=== PATIENT | male | born 1980 | race Caucasian/White ===

== ENCOUNTER 2023-01-16 07:56 | Emergency (ER) | payer MEDICAID ==
[~2023-01-16] VITALS: Ht 177.8 cm; Wt 118.0 kg
[2023-01-16 09:01] VITALS: BP 131/86
--- NOTE | 2023-01-16 09:33 | NUR ---
pt going for CT
== END 2023-01-16 10:20 | disposition home or self-care (01) ==
LOC: ER 07:57
DX: M25.521 Pain in right elbow (principal)
CPT/HCPCS: 73080; 73090; 73200; 99284

== ENCOUNTER 2024-02-10 14:52 | Emergency (ER) | payer MEDICAID ==
[~2024-02-10] VITALS: Ht 177.8 cm; Wt 152.3 kg
[2024-02-10 15:06] VITALS: BP 170/83; TEMP 97.8
[2024-02-10 16:08] LABS: BASOPHILS # (AUTO) 0.1 X10'3 (0-0.2); BASOPHILS % (AUTO) 0.7 % (0-1); EOSINOPHILS # (AUTO) 0.3 X10'3 (0-0.9); EOSINOPHILS % (AUTO) 3.1 % (0-6); HEMATOCRIT 38.3 % (42.0-52.0); LYMPHOCYTES # (AUTO) 1.2 X10'3 (1.1-4.8); LYMPHOCYTES % (AUTO) 13.6 % (21-51); MEAN CORPUSCULAR HEMOGLOBIN 31.7 PG (27.0-31.0); MEAN CORPUSCULAR HGB CONC 33.9 g/dL (33.0-36.5); MEAN CORPUSCULAR VOLUME 93.5 FL (78-98); MEAN PLATELET VOLUME 7.9 FL (7.4-10.4); MONOCYTES # (AUTO) 0.7 X10'3 (0-0.9); MONOCYTES % (AUTO) 7.6 % (2-12); NEUTROPHILS # (AUTO) 6.8 X10'3 (1.8-7.7); PLATELET COUNT 204 X10'3 (140-440); RED BLOOD COUNT 4.09 X10'6 (4.70-6.10); RED CELL DISTRIBUTION WIDTH 13.3 % (11.5-14.5); WHITE BLOOD COUNT 9.1 X10'3 (4.5-11.0)
[2024-02-10 16:14] LABS: APTT 27 SECONDS (22-32); D-DIMER 0.67 MG/L FEU (0-0.50); PROTHROMBIN TIME 10.4 SECONDS (9.0-12.0)
[2024-02-10 18:09] LABS: BILIRUBIN,URINE NEGATIVE (Neg); CLARITY,URINE CLEAR (Clear); COLOR,URINE YELLOW (Yellow); GLUCOSE, URINE NEGATIVE (Neg); KETONES,URINE NEGATIVE (Neg); LEUKOCYTE ESTERASE ,URINE NEGATIVE (Neg); NITRITES, URINE NEGATIVE (Neg); OCCULT BLOOD,URINE TRACE-INTACT (Neg); PH,URINE 6.5 (4.8-8.0); PROTEIN,URINE NEGATIVE (Neg); UROBILINOGEN,URINE 0.2 E.U/dL (0.2-1.0)
[2024-02-10 18:11] LABS: UA COLLECTION TYPE CLN CATCH MIDSTREAM
[2024-02-10 18:16] LABS: BACTERIA,URINE NONE SEEN /HPF (Neg); MUCUS STRANDS NONE SEEN /LPF (Neg); RBC,URINE NONE SEEN /HPF (0-2); SQUAMOUS EPITHELIAL CELL,UR NONE SEEN /LPF (FEW); WBC,URINE NONE SEEN /HPF (0-4)
[2024-02-10] MEDS ORDERED: LISI1TAB49 PO (18:33)
[2024-02-10 18:40] VITALS: PULSE 72; RESP 16; O2SAT 98
[2024-02-10 18:42] LABS: ALBUMIN 3.5 G/DL (3.4-5.0); ANION GAP 6 (8-16); BLOOD UREA NITROGEN 14 MG/DL (7-18); BUN/CREATININE RATIO 15.6 (10.0-20.0); CALCIUM 8.6 MG/DL (8.5-10.1); CHLORIDE 102 MMOL/L (99-107); GLUCOSE 96 MG/DL (70-104); POTASSIUM 3.9 MMOL/L (3.5-5.1); PRO BRAIN NATRIURETIC PEPTIDE 275 PG/ML (0-125); SODIUM 138 MMOL/L (135-145); TOTAL CARBON DIOXIDE 29.7 MMOL/L (24-32); eCRCL 107 ML/MIN; eGFR > 90 ML/MIN
== END 2024-02-10 19:17 | disposition home or self-care (01) ==
LOC: ER 14:53
DX: R60.0 Localized edema (principal); R53.83 Other fatigue; I10 Essential (primary) hypertension
CPT/HCPCS: 36415; 80048; 81001; 83735; 83880; 84484; 85025; 85379; 85610; 85730; 93005; 93306; 93970; 99284; J7030

== ENCOUNTER 2025-05-22 10:13 | Inpatient (IN) | payer MEDICAID ==
[~2025-05-22] VITALS: Ht 177.8 cm; Wt 136.4 kg
[~2025-05-22 10:13] MED LIST: LISI1TAB49 PO
[2025-05-22] MEDS: furosemide 10 MG/1 ML 10ml inj IV ONE (10:20)
--- NOTE | 2025-05-22 10:24 | Physician Documentation ---
History of Present Illness ~ Chief Complaint: Extremity Swelling Stated Complaint: EDEMA Time Seen by MD: 10:28 Primary Medical Doctor: none HPI 44-year-old male presents to the ED with a complaint of acute onset lower extremity swelling. 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 Reports increased shortness of breath. elena LYNN Day of Onset: May 22, 2025 Medication Reconciliation Allergies: Coded Allergies: No Known Allergies (Unverified , 05/22/25) Scheduled Lisinopril/Hydrochlorothiazide (Lisinopril-Hctz 10-12.5 mg Tab), 1 TAB PO DAILY Review of Systems All Other Systems at this time: Reviewed and Negative ROS As stated above in the HPI, otherwise all systems are reviewed and negative. Physical Exam Physical Exam General: Alert, mod distress. Neck: Full range of motion. Respiratory: Lungs clear,respiratory distress Chest: No accessory muscle use. Cardiovascular: tachycardia and rhythm, no murmurs. extremities : Bilateral lower extremity edema 3+ with erythema circumferential, Neurologic: Oriented x4. Psychiatric: Normal mood and affect. Skin: Normal color, warm and dry. No edema, no ecchymosis. Progress Results/Orders Results/Orders Orders - NELL BOLIVAR PACK CHANGER Chest,Single View (05/22/25 10:18) Monitor (05/22/25 10:18) Saline Lock (05/22/25 10:18) Oxygen (05/22/25 10:18) Hs Troponin I W Calculations (05/22/25 12:18) Hs Troponin I W Calculations (05/22/25 13:18) Culture Blood (05/22/25 11:35) Urinalysis, Cult If Indicated (05/22/25 11:35) Saline Lock (05/22/25 11:35) Page Hospitalist (05/22/25 ) Completed Orders - NELL BOLIVAR PACK CHANGER Chest,Single View (05/22/25 10:18) Cbc/Diff (05/22/25 10:18) BMP (05/22/25 10:18) PBNP (05/22/25 10:18) Electrocardiogram (05/22/25 10:18) Hs Troponin I W Calculations (05/22/25 10:18) Furosemide Inj (Lasix Inj) (05/22/25 10:20) Procalcitonin (05/22/25 11:35) Lacticsepsis (05/22/25 11:35) Lactic,2hr (05/22/25 13:41) Piperacillin/Tazo 4.5gm/100ml (Zosyn 4.5 (05/22/25 20:00) Vancomycin*Pharmacy To Dose* (Vancomycin (05/22/25 14:05) Normal Saline 1000ml (0.9% Sodium Chlori (05/22/25 14:05) Vancomycin/Ns 1 Gm Add-[place] (Vancomyc (05/22/25 14:25) Morphine 2mg/Ml Inj. (Morphine Inj.) (05/22/25 15:05) Ondansetron Inj. (Zofran 4mg/2ml Vial) (05/22/25 15:05) Medications Received in ER Medications (Trade) Dose Ordered Sig/Ronaldo Route PRN Reason Start Time Stop Time Status Last Admin Dose Admin (Lasix inj) 40 mg ONCE ONCE IV 05/22/25 10:20 05/22/25 10:21 DC 05/22/25 10:20 40 MG (Vancomycin Pharmacy To Dose) 1 unit ONCE ONCE IV 05/22/25 14:05 05/22/25 14:07 DC 05/22/25 14:05 1 UNIT (0.9% sodium chloride (NS) 1000ml IV soln) 2,000 ml ONCE ONCE IVB 05/22/25 14:05 05/22/25 14:07 DC 05/22/25 14:05 2,000 ML Vancomycin HCl 250 ml @ 166 mls/hr ONCE ONCE IV 05/22/25 14:25 05/22/25 15:55 DC 05/22/25 15:24 166 MLS/HR (morphine inj.) 2 mg ONCE ONCE IV 05/22/25 15:05 05/22/25 15:06 DC 05/22/25 15:24 2 MG (Zofran 4mg/2ml vial) 4 mg ONCE ONCE IV 05/22/25 15:05 05/22/25 15:06 DC 05/22/25 15:24 4 MG Vital Signs 05/22/25 10:19 Temp 97.6 Pulse 65 Resp 20 B/P (MAP) 182/104 Pulse Ox 89 Laboratory Tests Test 05/22/25 10:29 05/22/25 12:11 05/22/25 14:04 White Blood Count 21.6 H Red Blood Count 4.92 Hemoglobin 14.8 Hematocrit 44.0 Mean Corpuscular Volume 89.4 Mean Corpuscular Hemoglobin 30.0 Mean Corpuscular Hemoglobin Concent 33.6 Red Cell Distribution Width 13.4 Platelet Count 231 Mean Platelet Volume 8.0 Neutrophils (%) (Auto) 97.0 H Lymphocytes (%) (Auto) 1.6 L Monocytes (%) (Auto) 1.1 L Eosinophils (%) (Auto) 0 Basophils (%) (Auto) 0.3 Neutrophils # (Auto) 20.9 H Lymphocytes # (Auto) 0.3 L Monocytes # (Auto) 0.2 Eosinophils # (Auto) 0.0 Basophils # (Auto) 0.1 CBC Comment Sodium Level 132 L Potassium Level 3.6 Chloride Level 95 L Carbon Dioxide Level 26.4 Anion Gap 11 Blood Urea Nitrogen 8 Creatinine 1.20 H Estimated GFR/1.73 m2 65 BUN/Creatinine Ratio 6.7 L Glucose Level 144 H Calcium Level 8.6 Troponin I High Sensitivity 8 Pro-B-Type Natriuretic Peptide 768 H Albumin 3.3 L Chemistry Comments Lactic Acid Level 3.1 H 1.4 Procalcitonin 4.80 H Microbiology Date/Time Source Procedure Growth Status 05/22/25 12:11 Blood Hand Right Blood Culture - Preliminary NEGATIVE (LESS THAN 24 HOURS) Resulted Medical Decision Making Findings This 44-year-old male presented with severe lower extremity edema and cellulitis. He also had the clinical indications for sepsis based on an elevated lactate and a white blood cell count over 20. Started him on fluid boluses and IV antibiotics and requested hospital admission. Resident took over care of the patient Differential Dx:Considerations: Include: anxiety, asthma, bronchitis, cardiogenic shock, CHF, COPD, dysrhythmia, hypertension, accelerated, hypertension, essential, hypertension, malignant, hyperventilation, h yponatremia, myocardial infarction, panic attack, pneumonia, pneumonitis, pneumothorax, PSVT, pulmonary embolism, respiratory distress, respiratory failure, sinusitis, upper resp. infection, other Departure Disposition: 09 ADMITTED INPATIENT Impression: Primary Impression: Peripheral edema Additional Impression: Cellulitis Condition: Stable Referrals: NO PRIMARY CARE PROVIDER (PCP) Signature Scribe Signature: r Attestation: Scribed for Nell Bolivar Television Anchor by Nell Buitrago NP . 05/22/25 17:36 NELL BOLIVAR NP May 22, 2025 10:24 DIVYA BEDOLLA MD May 22, 2025 17:34
--- NOTE | 2025-05-22 10:30 | ELECTROCARDIOGRAPH REPORT ---
[facility] Test Date: 2025-05-22 Test Time: 10:27:57 Pat Name: ANTOINETTE MCGOWAN Department: [facility] Patient ID: [id number] Room: Gender: M Buffing Machine Operator: : [id number] Requested By: NELL LOFTON Order Number: [id number] Reading MD: Measurements Intervals [place] Rate: 119 P: -1 MA: 148 QRS: 96 QRSD: 151 T: 2 QT: 349 QTc: 492 Interpretive Statements Sinus tachycardia RBBB and LPFB Please click the below link to view image of tracing.
--- NOTE | 2025-05-22 10:58 | RADIOLOGY REPORT ---
DI CHEST,SINGLE VIEW, HISTORY: CP COMPARISON: DI CHEST,SINGLE VIEW on DOS: 02/08/24 DI CHEST,SINGLE VIEW on DOS: 02/08/24 TECHNICAL DATA: 1 view of the chest was obtained. FINDINGS: Lines and tubes: None Cardiomediastinal silhouette: normal Pulmonary vasculature: normal Lung expansion: normal Lung airspace: normal Lung interstitium: normal Pleura: normal Pneumothorax: no Bones: Unremarkable Other: no IMPRESSION: No acute intrathoracic abnormality.
[2025-05-22 11:02] LABS: MEAN PLATELET VOLUME 8.0 FL (7.4-10.4); RED CELL DISTRIBUTION WIDTH 13.4 % (11.5-14.5)
[2025-05-22 11:20] LABS: CREATININE 1.20 MG/DL (0.60-1.10); PRO BRAIN NATRIURETIC PEPTIDE 768 PG/ML (0-125); TOTAL CARBON DIOXIDE 26.4 MMOL/L (24-32); eCRCL 79 ML/MIN; eGFR 65 ML/MIN
[2025-05-22] MEDS: normal saline 1000ML IV soln IVB ONE (14:05)
[2025-05-22] MEDS ORDERED: piperacillin/tazo 4.5gm/100ml 100 ML IV ONE (14:50)
[2025-05-22] MEDS: vancomycin/NS 1 GM ADD-VANTAGE 250 ML X 1 DOSE IV ONE (15:24)
[2025-05-22] MEDS: ondansetron/PF 4mg/2ml inj IV ONE (15:24)
[2025-05-22] MEDS ORDERED: HYDROmorphone/PF 0.2 MG/ML SYRINGE IV PRN (15:30)
[2025-05-22] MEDS ORDERED: mag hydrox/Alum hydrox/simeth 30ml oral suspension PO PRN (15:30)
[2025-05-22] MEDS ORDERED: magnesium Cl slow-release 64mg tablet PO PRN (15:30)
[2025-05-22] MEDS ORDERED: magnesium sulf-water 4G/100mL 100 ML IV PRN (15:30)
[2025-05-22] MEDS ORDERED: ondansetron/PF 4mg/2ml inj IV PRN (15:30)
[2025-05-22] MEDS ORDERED: magnesium hydroxide 30ml (MOM) UD suspension PO PRN (15:30)
[2025-05-22] MEDS ORDERED: potassium Cl 40MEQ/1/2NS 520ml 520 ML IV PRN (15:30)
[2025-05-22] MEDS ORDERED: magnesium sulf-water 2g/50mL 50 ML IV PRN (15:30)
[2025-05-22] MEDS: normal saline 1000ml 1,000 ML IV SCH (15:41)
[2025-05-22] MEDS ORDERED: piperacillin/tazo 3.375gm/50ml 50 ML IV SCH (16:00)
[2025-05-22] MEDS: piperacillin/tazo 4.5gm/100ml 100 ML IV ONE (16:05)
[2025-05-22 17:06] LABS: APTT 31 SECONDS (22-32); INR 1.4 INR
[2025-05-22 17:09] LABS: CREATININE 1.29 MG/DL (0.60-1.10); PHOSPHORUS 3.2 MG/DL (2.3-4.5); TOTAL CARBON DIOXIDE 29.4 MMOL/L (24-32); eCRCL 74 ML/MIN; eGFR 60 ML/MIN
--- NOTE | 2025-05-22 19:38 | HISTORY AND PHYSICAL-Residence ---
History & Physical Providers to Resident Creating Document: DAYAN MIN RES ~ History of Present Illness Primary Medical Doctor: none Reason for Admit\Complaint: Lower extremity pain-mainly right History of Present Illness The 44-year-old male who lives with his roommates presented to the ER with a chief concern of worsening pain and erythema in his bilateral lower extremities- mainly in the right. States that he has been having chronic bilateral lower extremity edema for many months to years but the pain and erythema started two days back and he woke up with pain last night. Denies taking any medications at home. Denies any chest pain, nausea and vomiting, constipation or diarrhea. Appears drowsy. States that he has been smoking 1-2 cigarettes per day for the last 20 years. He occasionally drinks alcohol once or twice a year. Mentioned that he drinks methamphetamine in the last one was about two years back. Denies any IV drug abuse. He uses CPAP at night for obstructive sleep apnea. Allergies: Coded Allergies: No Known Allergies (Unverified , 05/22/25) Home Medications Home Medications Active Lisinopril-Hctz 10-12.5 mg Tab (Lisinopril/Hydrochlorothiazide) 10 Mg-12.5 Mg Tablet 1 Tab PO DAILY 30 Days Past Medical History Past Medical History BPH, obstructive sleep apnea Past Surgical History Surgical History Comment Denies any surgical history Past Social History Social History Comment States that he has been smoking 1-2 cigarettes per day for the last 20 years. He occasionally drinks alcohol once or twice a year. Mentioned that he drinks methamphetamine in the last one was about two years back. ROS ROS Constitutional: No fever, chills, dizziness, weakness, weight gain or loss Eyes: No pain, erythema, discharge, blurring of vision ENT: No sore throat, epistaxis, tinnitus Cardiovascular: No chest pain, chest pressure, chest discomfort, palpitations, syncope, lower extremity edema, paroxysmal nocturnal dyspnea Respiratory: No shortness of breath, cough, hemoptysis Gastrointestinal: Normal appetite. No nausea, vomiting, diarrhea, constipation, hematemesis, abdominal pain, bloating, melena or fresh blood Genitourinary: No frequency, urgency, nocturia, hematuria or dysuria Musculoskeletal: Bilateral lower extremity pain. Mainly in the right Integumentary: Erythema of right lower extremity talpy-efg-fsla till the ankle. No bruising, abrasions Neurologic: No headache, neck pain, numbness or tingling of the extremities, weakness Psychiatric: No delusions, depression, loss of interest in normal activity or change in sleep pattern, hallucinations, suicidal ideations Endocrine: No fatigue, weakness, polydipsia, polyuria, change in appetite, heat or cold intolerance, sweating, dry skin Hematological: No bleeding, petechiae, bruising Allergies: No asthma or urticaria Exam Vitals: Vital Signs Date Time Temp Pulse Resp B/P (MAP) Pulse Ox O2 Delivery O2 Flow Rate FiO2 05/22/25 18:02 114 14 128/62 (84) 95 05/22/25 15:30 2.0 05/22/25 15:30 Nasal Cannula* 28 05/22/25 10:19 97.6 General: Appears drowsy. Oriented to time, self, place and person. Morbidly obese HEENT: Normocephalic and atraumatic. Pupils equal round reactive to light and accommodation. Extraocular movements intact. Oral and nasal mucosa moist Neck: Trachea is in midline. No masses or JVD Chest: Bilateral normal breath sounds. No crackles, rhonchi or wheezes Cardiovascular: Elevated rate. Sinus rhythm. No rubs or murmurs Abdomen: Soft, nontender nondistended. Bowel sounds present Extremities: Bilateral lower extremity pedal edema-appears chronic. Erythema, warmth and tenderness in the right lower extremity ldkiz-nzd-slin till ankle. No open wounds or discharge. No cyanosis or clubbing. Bilateral 2+ pedal pulse Central Nervous System: No gross sensory or motor deficits. CN II to XII grossly intact Skin: Warm and dry with findings as mentioned above Diagnostic Data Last Recorded Lab Results: 05/22/25 1029 05/22/25 1642 Diagnostic Data: Laboratory Tests Test 05/22/25 16:42 Prothrombin Time 13.5 SECONDS (9.0-12.0) H INR International Normalized Ratio 1.4 INR Activated Partial Thromboplast Time 31 SECONDS (22-32) D-Dimer 1.37 MG/L FEU (0-0.50) H D-Dimer Comment Coagulation Comments Advance Care Planning Advanced Care plannin - 30 Minutes Additional Plan Sepsis secondary to right lower extremity cellulitis Elevated WBC, tachycardic Received 2 L normal saline boluses in the ER. Avoided further fluid boluses due to suspicion fluid overload as he already has significant bilateral lower extremity edema. Also received Lasix 40 mg IV once in the ER Received Zosyn 4.5 g IV and one dose of vancomycin in the ER Started Zosyn 3.375 g IV q.8h and vancomycin pharmacy to dose Preliminary blood cultures negative UA and urine tox ordered Bilateral lower extremity CT ordered to rule out necrotizing fasciitis Bilateral venous ultrasound ordered to look for any DVT Elevated lactic acid-3.1. Trended down to normal Procalcitonin elevated-4.8. Trend procalcitonin Sinus tachycardia EKG showed sinus rhythm, wide QRS with M pattern in precordial leads, T-wave inversions in lead III, V1, prolonged QTC-492 Elevated D-dimer 1.37 Ordered chest CTA Mild hyponatremia and hypochloremia Possible RHINA on CKD Received 2 L normal saline boluses in the ER Started normal saline at 100 cc/hour Urine lytes ordered Obstructive sleep apnea Continue CPAP at night BPH Mentions that he does not use any medications at home DVT prophylaxis: Lovenox 40 mg subcutaneous daily Dayan Min MD Internal Medicine Resident, PGY 3 Date of Service: May 22, 2025 Billing Provider: LEXA QUINTANILLA MD, MANOJNA RES May 22, 2025 19:38
[2025-05-22] MEDS: K and/or MAG REPLACEMENT MC SCH (20:00)
[2025-05-22] MEDS ORDERED: piperacillin/tazo 4.5gm/100ml 100 ML IV SCH (20:00)
--- NOTE | 2025-05-22 20:41 | RADIOLOGY REPORT ---
COMPUTERIZED TOMOGRAPHIC ANGIOGRAPHY OF THE CHEST WITH INTRAVENOUS CONTRAST REASON FOR EXAM: rule out PE. Worsening pain and erythema in bilateral lower extremities, right-grea zwj-srvn-leye. Chronic bilateral lower extremity edema for many months. COMPARISON: None TECHNIQUE: The exam was performed on a multidetector spiral scanner. Spiral images were acquired fro m the thoracic inlet through the adrenal glands, during the bolus intravenous administration of cont rast. Multiplanar maximum intensity projection (MIP) images were provided. Radiation optimization: Al l CT scans at this facility use at least one of these dose optimization techniques: Automated exposur e control mA and/or kV adjustment per patient size (includes targeted exams where dose is matched to clinical indication) or iterative reconstruction. RADIATION DOSE: CTDI: 25 mGy DLP: 985 mGy-cm FINDINGS: There is minimal dependent atelectasis in both lungs. There is no bronchiectasis or honeyc ombing. There is no pleural effusion. There is no pneumothorax. The heart is not enlarged. There is no pericardial effusion. There is no thoracic aortic aneurysm or dissection. Due to contrast bolus ti iftikhar in the systemic arteries and lack of contrast in the pulmonary arteries, the study is nondiagnos tic for pulmonary embolism. There is no pathologic lymphadenopathy by size criteria. No acute osseous abnormality is identified. IMPRESSION: Due to contrast bolus timing in the systemic arteries and the lack of contrast in the pulmonary arter ial tree, the study is nondiagnostic for pulmonary embolism. If there is high clinical concern for pu lmonary embolism, consider repeating the study after IV hydration. There is no thoracic aortic aneurysm or dissection.
--- NOTE | 2025-05-22 20:51 | RADIOLOGY REPORT ---
COMPUTERIZED TOMOGRAPHY OF BILATERAL LOWER EXTREMITIES WITHOUT CONTRAST REASON FOR EXAM: rule out necrotizing fascitis. Worsening pain and erythema in bilateral lower extrem ities, cfqxv-veqduid-oyhg-left. Bilateral lower extremity edema for many months with worsening pain a nd erythema starting 2 days ago. COMPARISON: None TECHNIQUE: The exam was performed on a multidetector scanner. Thin slices were acquired through abner ateral lower extremities from the distal femoral metaphysis through the toes. Sagittal and coronal r eformations were performed on a separate workstation. Radiation optimization: All CT scans at this facility use at least one of these dose optimization huey hniques: Automated exposure control mA and/or kV adjustment per patient size (includes targeted exams where dose is matched to clinical indication) or iterative reconstruction. RADIATION DOSE: CTDI: 9 mGy DLP: 646 mGy-cm FINDINGS: There is moderate diffuse subcutaneous edema in the left lower extremity [id number]-[id number]. There is severe diffuse subcutaneous edema in the right lower extremity yleel-sbo-adxu. No subcutane ous gas is identified. No soft tissue ulceration is identified. There is no significant knee effusion . There is an intramedullary emeli within the right tibia. There is plate and screw fixation of the dis omer right fibula. No acute osseous abnormality is identified within the limitations of motion artifac t. There is moderate motion artifacts mostly affecting the left foot. IMPRESSION: Moderate left and severe right diffuse subcutaneous edema in lower extremities nmubp-wib-zyyu. No jeter bcutaneous gas to suggest necrotizing fasciitis although it can not be ruled out.
[2025-05-22] MEDS: piperacillin/tazo 3.375gm/50ml 50 ML IV SCH (21:27)
[2025-05-22] MEDS: enoxaparin 40mg/0.4ml syringe SQ SCH (21:32)
[2025-05-22 21:36] VITALS: PULSE 105; RESP 29; O2SAT 94
--- NOTE | 2025-05-22 21:54 | VASCULAR REPORT ---
VASC VL VENOUS HISTORY: Swelling COMPARISON: CT CT LOWER EXTREMITY on DOS: 05/22/25 TECHNIQUE: Duplex Doppler evaluation of the deep venous systems of both lower extremities from the co mmon femoral veins to the popliteal veins including color Doppler and spectral/pulsed waveform analys is was performed. FINDINGS: RIGHT SIDE The common femoral vein demonstrates appropriate compressibility and waveform variability. There is compressibility/patency of the great saphenous vein at the proximal thigh. The femoral vein demonstrates appropriate compressibility and waveform variability. The deep femoral vein demonstrates appropriate compressibility and waveform variability. The popliteal vein demonstrates appropriate compressibility and waveform variability. There is normal compressibility at the tibioperoneal trunk. LEFT SIDE The common femoral vein demonstrates appropriate compressibility and waveform variability. There is compressibility/patency of the great saphenous vein at the proximal thigh. The femoral vein demonstrates appropriate compressibility and waveform variability. The deep femoral vein demonstrates appropriate compressibility and waveform variability. The popliteal vein demonstrates appropriate compressibility and waveform variability. There is normal compressibility at the tibioperoneal trunk. Enlarged lymph nodes in the right groin measuring 3.3 and 2.9 cm in the transverse plane. IMPRESSION: No right or left femoropopliteal venous thrombosis. If clinical concern/symptoms persist or worsen, short-interval follow-up study is suggested.
[2025-05-22 22:59] VITALS: BP 117/80; PULSE 100; RESP 22; TEMP 100.9; O2SAT 99
[2025-05-22 23:00] VITALS: RESP 418
[2025-05-22 23:04] VITALS: PULSE 100; RESP 29; O2SAT 97
[2025-05-23] VITALS (10 sets, daily range): BP systolic 113–154; BP diastolic 78–96; PULSE 94–111; RESP 14–26; TEMP 97.7–103; O2SAT 96–100
[2025-05-23] MEDS: vancomycin/NS 1 GM ADD-VANTAGE 250 ML IV SCH (00:29)
[2025-05-23] MEDS: piperacillin/tazo 3.375gm/50ml 50 ML IV ONE (04:32)
[2025-05-23 04:53] LABS: MEAN PLATELET VOLUME 7.7 FL (7.4-10.4); RED CELL DISTRIBUTION WIDTH 13.5 % (11.5-14.5)
[2025-05-23 04:55] LABS: LEUKOCYTE ESTERASE ,URINE NEGATIVE (Neg); NITRITES, URINE NEGATIVE (Neg); OCCULT BLOOD,URINE TRACE-INTACT (Neg)
[2025-05-23 05:03] LABS: UA COLLECTION TYPE NON-SPECIFIED
[2025-05-23 05:04] LABS: MUCUS STRANDS FEW /LPF (Neg); SQUAMOUS EPITHELIAL CELL,UR FEW /LPF (FEW)
[2025-05-23 05:05] LABS: HYALINE CASTS 0-3 /LPF (NEGATIVE)
[2025-05-23 05:10] LABS: URINE AMPHETAMINE SCREEN POSITIVE (Neg); URINE BARBITUATE SCREEN NEGATIVE (Neg); URINE BENZODIAZEPINES SCREEN NEGATIVE (Neg); URINE CANNABINOID SCREEN POSITIVE (Neg); URINE COCAINE SCREEN NEGATIVE (Neg); URINE METHADONE SCREEN NEGATIVE (Neg); URINE OPIATE SCREEN POSITIVE (Neg); URINE PHENCYCLIDINE SCREEN NEGATIVE (Neg)
[2025-05-23 05:10] LABS: CREATININE 1.40 MG/DL (0.60-1.10); TOTAL CARBON DIOXIDE 26.8 MMOL/L (24-32)
[2025-05-23 05:11] LABS: CHOL/HDL RATIO 3.8 (0.00-4.99); LDL CHOLESTEROL 65 MG/DL (50-100); PHOSPHORUS 2.8 MG/DL (2.3-4.5); eCRCL 68 ML/MIN; eGFR 55 ML/MIN
[2025-05-23 05:15] LABS: UA EOSINOPHILS NO EOS /HPF
[2025-05-23 05:23] LABS: APTT 31 SECONDS (22-32); INR 1.2 INR
[2025-05-23 05:41] LABS: OSMOLALITY UA 641.0 MOSM/K (50-1400)
[2025-05-23 05:50] LABS: CREATININE,URINE RANDOM 223.0 MG/DL
[2025-05-23] MEDS: potassium Cl 20 mEq SR tablet PO PRN (07:32)
[2025-05-23] MEDS: normal saline 500ml IV soln 500 ML IV ONE ×2 (10:45→12:33)
--- NOTE | 2025-05-23 11:08 | RADIOLOGY REPORT ---
CTA Chest with intravenous contrast INDICATION: Tachycardia, tachypnea, high D-dimer COMPARISON: CT CTA CHEST PE W/ IV CONTRAST on DOS: 05/22/25 TECHNIQUE: Multidetector spiral CTA of the chest was performed of the chest with 100 cc of omnipaque 350 intravenous contrast. PULMONARY ANGIOGRAPHY PROTOCOL was utilized using a bolus-tracking technique centered on the main pulmonary artery. Coronal and sagittal multiplanar and MIP reformats were performed. Radiation Dose : 1. Chest: CTDI volume is 24.9 mGy. Dose-length product is 876.8 mGy*cm The dose indicators for CT are the volume Computed Tomography (CT) Dose Index (CTDIvol) and the Dose Length Product (DLP), and are measured in units of mGy and mGy-cm, respectively. These indicators are not patient dose, but values generated from the CT scanner acquisition factors. The report includes radiation exposure data for exposures received during this examination. FINDINGS: Pulmonary artery: There suboptimal enhancement of the pulmonary arteries. There is no filling defects in the main pulmonary arteries. Lobar, segmental and subsegmental branches are not evaluated. Lower neck: Unremarkable thyroid. Lungs: There is bilateral lower lobe atelectasis. Central airways: Patent. Pleura: No pneumothorax. No pleural effusions. Heart/Vascular Structures: The heart is normal in size. No pericardial effusion. Thoracic aorta is normal in caliber. No aneurysm or dissection. Lymph Nodes: No mediastinal or hilar lymphadenopathy. Esophagus:Grossly unremarkable. Musculoskeletal: Unremarkable. Body wall: Cystic mass in the right chest wall measures 6.7 cm. Bilateral gynecomastia noted. Upper abdomen: Unremarkable. IMPRESSION: 1. Suboptimal enhancement of the pulmonary arteries. No pulmonary embolus in the main pulmonary arteries. Lobar, segmental and subsegmental branches are not evaluated due to poor enhancement. If clinically warranted, nuclear medicine V/Q scan may be obtained. 2. Bilateral lower lobe atelectasis. 3. Bilateral gynecomastia. 4. Cystic mass in the right chest wall measures 6.7 cm.
[2025-05-23] MEDS: HYDROcodone/acetaminophen 10/325mg tab PO PRN (12:37)
[2025-05-23] MEDS: VANCOMYCIN LEVEL IV ONE (15:10)
--- NOTE | 2025-05-23 15:45 | PROGRESS NOTE- Residence ---
Progress Note - Resident Providers to CC Resident Creating Document: DAYAN MIN RES ~ Antibiotic Timeout Antibiotic Ordered?: Yes Subjective Patient seen and examined today. Resting in the bed and complaints of pain in the right leg. Telemetry showed sinus rhythm with max heart rate in low 100s. Objective Vital Signs Date Time Temp Pulse Resp B/P (MAP) Pulse Ox O2 Delivery O2 Flow Rate FiO2 05/23/25 13:37 14 05/23/25 10:00 98.1 98 137/78 (97) 100 Room Air 05/23/25 08:00 2.0 28 Result Diagram: 05/23/2543505/23/25435 General examination: Appears drowsy. Oriented to time, self, place and person. Morbidly obese HEENT: Normocephalic and atraumatic. Pupils equal round reactive to light and accommodation. Extraocular movements intact. Oral and nasal mucosa moist Neck: Trachea is in midline. No masses or JVD Chest: Bilateral normal breath sounds. No crackles, rhonchi or wheezes Cardiovascular: Regular rate and rhythm. No rubs or murmurs Abdomen: Soft, nontender nondistended. Bowel sounds present Extremities: Bilateral lower extremity pedal edema-appears chronic. Erythema, warmth and tenderness in the right lower extremity [id number] till ankle. No open wounds or discharge. No cyanosis or clubbing. Bilateral 2+ pedal pulse. Erythema improving Central Nervous System: No gross sensory or motor deficits. CN II to XII grossly intact Skin: Warm and dry with findings as mentioned above Coagulation Studies Laboratory Tests Test 05/22/25 16:42 05/23/25 04:36 D-Dimer 1.37 MG/L FEU (0-0.50) H D-Dimer Comment Prothrombin Time 11.9 SECONDS (9.0-12.0) INR International Normalized Ratio 1.2 INR Activated Partial Thromboplast Time 31 SECONDS (22-32) Coagulation Comments Assessment Assessment The 44 year old male with a history of methamphetamine and tobacco abuse presented to the ER with a concern of worsening bilateral LE pain pain and erythema. Admitted for sepsis secondary to Bilateral LE cellulitis - worse in the right. Plan Plan Sepsis secondary to bilateral lower extremity cellulitis - worse in the right wbc and procalcitonin trending down Continue zosyn 3.375 g IV q.8h and vancomycin pharmacy to dose Moderate left and severe right diffuse subcutaneous edema in lower extremities [id number]. No subcutaneous gas to suggest necrotizing fasciitis although it can not be ruled out. LE erythema improving Preliminary blood cultures negative Bilateral venous usg showed No right or left femoropopliteal venous thrombosis. Given 1L normal saline bolus as he got two doses of contrasts continue NS @ 100cc/hr Bilateral LE CT: Moderate left and severe right diffuse subcutaneous edema in lower extremities [id number]. No subcutaneous gas to suggest necrotizing fasciitis although it can not be ruled out. Sinus tachycardia - improving with IV fluid hydration EKG at the time of admission showed sinus rhythm, wide QRS with M pattern in precordial leads, T-wave inversions in lead III, V1, prolonged QTC-492 Elevated D-dimer 1.37 Chest CTA showed: due to contrast bolus timing in the systemic arteries and the lack of contrast in the pulmonary arterial tree, the study is nondiagnostic for pulmonary embolism. If there is high clinical concern for pulmonary embolism, consider repeating the study after IV hydration. Repeat chest CTA ordered at night. It showed: -Suboptimal enhancement of the pulmonary arteries. No pulmonary embolus in the main pulmonary arteries. Lobar, segmental and subsegmental branches are not evaluated due to poor enhancement. If clinically warranted, nuclear medicine V/Q scan may be obtained. -Bilateral lower lobe atelectasis. -Bilateral gynecomastia. -Cystic mass in the right chest wall measures 6.7 cm. -There is no thoracic aortic aneurysm or dissection. Due to his active smoking. tachycardia, elevated D dimer - VQ scan ordered Echocardiogram ordered Methamphetamine abuse Tobacco abuse Urine tox showed postivie amphetamines and cannabinoids marine services technician and substance use navigator consult requested Mild hyponatremia and hypochloremia Possible RHINA on CKD Continue normal saline at 100 cc/hour FeNa<1%, elevated osmolality - Likely Pre renal - vasootor nephropathy though sodium more than 20 Hypokalemia: Replacement as per the protocol Mg- 1.8. Gave one dose of 2gm Magnesium sulfate Obstructive sleep apnea Continue CPAP at night BPH Mentions that he does not use any medications at home DVT prophylaxis: Lovenox 40 mg subcutaneous daily Disposition: F/U VQ scan. continue antibiotics and trend procal. F/u final blood cultures. Possible d/s in 48 hrs Dayan Min MD Internal Medicine Resident, PGY 3 Date of Service: May 23, 2025 Billing Provider: LEXA QUINTANILLA MD, MANOJNA [facility] May 23, 2025 15:45
[2025-05-23] MEDS: magnesium sulf-water 2g/50mL 50 ML IV ONE (17:19)
--- NOTE | 2025-05-23 18:54 | CARDIOLOGY REPORT ---
APPROVED REPORT EXAM: Comprehensive 2D, Doppler, and color-flow Echocardiogram. Patient Location: [facility] Heart Rate: 93 bpm Rhythm: SINUS Indications ABNORMAL EKG PROBNP 768 SEPSIS METH ABUSE Engineering Manager: NONE Previous echo: NONE 2D Dimensions RVDd 4.5 cm LA Diam 4.3 cm LVOT Diameter 2.10 (1.8-2.4cm) CO 7.2 L/min M-Mode Dimensions Left Atrium(MM) 3.94 (2.5-4.0cm) IVSd 1.78 (0.7-1.1cm) LVDd 4.76 (4.0-5.6cm) Aortic Root 4.08 (2.2-3.7cm) PWd 1.73 (0.7-1.1cm) Aortic Cusp Exc 2.88 (1.5-2.0cm) IVSs 2.11 cm LVDs 2.79 (2.0-3.8cm) FS (%) 41 % PWs 2.11 cm ESV(Teich) 29.2 ml LVEF(%) 72 (>50%) Aortic Valve AoV Peak Cruzito. 162.3 cm/s AoV VTI 29.1 cm AO Peak GR. 10.5 mmHg AO Mean GR. 7 mmHg LVOT VTI 21.95 cm LVOT Peak Cruzito. 122.9 cm/s LUIS(VTI)/BSA 2.61 cm2/m2 LUIS (VTI) 2.61 cm2 Mitral Valve MV E Velocity 102.7 cm/s MV Peak Gr. 3 mmHg MV DECEL TIME 204 ms MV A Velocity 65.9 cm/s MV PHT 64 ms E/A Ratio 1.6 MVA (PHT) 3.44 cm2 MV VMax 90.9 cm/s Pulmonary Vein S1 Velocity 51.5 cm/s D2 Velocity 61.3 cm/s PVa Velocity 39.5 cm/s PVa Duration 92 msec LEFT VENTRICLE Normal LV size and function. Moderate concentric hypertrophy. LVEF is 65-70%. RIGHT VENTRICLE RV is moderately increased in size with mildly reduced function. ATRIA Left atrium is mildly dilated. AORTIC VALVE Trileaflet AV appears mildly sclerotic without stenosis or insufficiency. MITRAL VALVE Mild MV annular calcification without stenosis. Trace regurgitation. TRICUSPID VALVE TV appears structurally normal with trace regurgitation. PULMONIC VALVE Normal PV without stenosis, physiologic insufficiency. GREAT VESSELS Aortic root is mildly dilated. Ascending aorta is grossly normal in size. PERICARDIUM Normal pericardium. No effusion. Prominent anterior epicardial fat pad. Other Information Study Quality: Technically Difficult due habitus, poor positioning, and poor imaging windows. Conclusion Normal LV size and function. Moderate concentric hypertrophy. LVEF is 65-70%. RV is moderately increased in size with mildly reduced function. Left atrium is mildly dilated. Trileaflet AV appears mildly sclerotic without stenosis or insufficiency. Mild MV annular calcification without stenosis. Trace regurgitation. TV appears structurally normal with trace regurgitation. Normal pericardium. No effusion. Prominent anterior epicardial fat pad.
[2025-05-23] MEDS ORDERED: vancomycin/NS 1 GM ADD-VANTAGE 250 ML IV SCH (23:00)
[2025-05-23] MEDS: VANCOmycin 1250MG/NS 250ml Bag 250 ML IV SCH (23:23)
[2025-05-24] VITALS (7 sets, daily range): BP systolic 128–152; BP diastolic 74–88; PULSE 70–93; RESP 16–19; TEMP 97.6–98.1; O2SAT 96–100
[2025-05-24] MEDS: HYDROcodone/acetaminophen 5mg/325mg tablet PO PRN (04:26)
[2025-05-24 06:14] LABS: MEAN PLATELET VOLUME 7.6 FL (7.4-10.4); RED CELL DISTRIBUTION WIDTH 13.6 % (11.5-14.5)
[2025-05-24 06:31] LABS: APTT 30 SECONDS (22-32); INR 1.0 INR
[2025-05-24 06:45] LABS: CREATININE 0.82 MG/DL (0.60-1.10); PHOSPHORUS 2.8 MG/DL (2.3-4.5); TOTAL CARBON DIOXIDE 26.1 MMOL/L (24-32); eCRCL 116 ML/MIN; eGFR > 90 ML/MIN
[2025-05-24] MEDS: potassium Cl 20 mEq SR tablet PO PRN (08:32)
[2025-05-24] MEDS ORDERED: LISI1TAB49 PO (08:35)
--- NOTE | 2025-05-24 12:46 | RADIOLOGY REPORT ---
NUCLEAR MEDICINE VENTILATION/PERFUSION LUNG SCAN. INDICATION: rule out PE COMPARISON: CT CTA CHEST PE W/ IV CONTRAST on DOS: 05/23/25, CT CTA CHEST PE W/ IV CONTRAST on DOS: 05/22/25, DI CHEST,SINGLE VIEW on DOS: 05/22/25, DI CHEST,SINGLE VIEW on DOS: 02/08/24 TECHNIQUE: Following intravenous demonstration of 5.3 millicuries of technetium 99m MAA, and inhalation of 44.7 mCi of Tc 99m DTPA scintigrams were obtained in multiple projections of the lungs. FINDINGS: There is normal uptake of radionuclide on both the ventilation and perfusion portions of the examination. No mismatched perfusion defects are demonstrated. Uptake is normally homogeneous. IMPRESSION: Low probability for PE.
[2025-05-24] MEDS: piperacillin/tazo 3.375gm/50ml 50 ML IV SCH (17:35)
--- NOTE | 2025-05-24 20:24 | PROGRESS NOTE- Residence ---
Progress Note - Resident Providers to CC Resident Creating Document: DAYAN MIN RES ~ Antibiotic Timeout Antibiotic Ordered?: Yes Subjective Patient seen and examined today. Stated that he feels better and he walks by himself and wants to go home. No new complaints. His erythema and swelling of bilateral lower extremity improving Objective Vital Signs Date Time Temp Pulse Resp B/P (MAP) Pulse Ox O2 Delivery O2 Flow Rate FiO2 05/24/25 20:00 16 96 Room Air 0.0 21 05/24/25 10:14 78 05/24/25 06:00 98.0 128/74 (92) Result Diagram: 05/24/25 0554 05/24/25 0554 General examination: Appears drowsy. Oriented to time, self, place and person. Morbidly obese HEENT: Normocephalic and atraumatic. Pupils equal round reactive to light and accommodation. Extraocular movements intact. Oral and nasal mucosa moist Neck: Trachea is in midline. No masses or JVD Chest: Bilateral normal breath sounds. No crackles, rhonchi or wheezes Cardiovascular: Regular rate and rhythm. No rubs or murmurs Abdomen: Soft, nontender nondistended. Bowel sounds present Extremities: Bilateral lower extremity pedal edema-appears chronic. Erythema, warmth and tenderness in the right lower extremity [id number] till ankle. No open wounds or discharge. No cyanosis or clubbing. Bilateral 2+ pedal pulse. Erythema improving Central Nervous System: No gross sensory or motor deficits. CN II to XII grossly intact Skin: Warm and dry with findings as mentioned above Coagulation Studies Laboratory Tests Test 05/22/25 16:42 05/24/25 05:54 D-Dimer 1.37 MG/L FEU (0-0.50) H D-Dimer Comment Prothrombin Time 10.3 SECONDS (9.0-12.0) INR International Normalized Ratio 1.0 INR Activated Partial Thromboplast Time 30 SECONDS (22-32) Coagulation Comments Assessment Assessment The 44 year old male with a history of methamphetamine and tobacco abuse presented to the ER with a concern of worsening bilateral LE pain pain and erythema. Admitted for sepsis secondary to Bilateral LE cellulitis - worse in the right. Plan Plan Sepsis secondary to bilateral lower extremity cellulitis - worse in the right WBC came down to normal and procalcitonin trending down. Repeat procal in in Continue zosyn 3.375 g IV q.8h and vancomycin pharmacy to dose Erythema in bilateral lower extremity improving Preliminary blood cultures negative Bilateral venous usg showed No right or left femoropopliteal venous thrombosis. continue NS @ 100cc/hr Bilateral LE CT: Moderate left and severe right diffuse subcutaneous edema in lower extremities [id number]. No subcutaneous gas to suggest necrotizing fasciitis although it can not be ruled out. Requested top case assembler to get a wound care appointment Sinus tachycardia -resolved EKG at the time of admission showed sinus rhythm, wide QRS with M pattern in precordial leads, T-wave inversions in lead III, V1, prolonged QTC-492 Elevated D-dimer 1.37 Chest CTA showed: due to contrast bolus timing in the systemic arteries and the lack of contrast in the pulmonary arterial tree, the study is nondiagnostic for pulmonary embolism. If there is high clinical concern for pulmonary embolism, consider repeating the study after IV hydration. Repeat chest CTA ordered at night. It showed: -Suboptimal enhancement of the pulmonary arteries. No pulmonary embolus in the main pulmonary arteries. Lobar, segmental and subsegmental branches are not evaluated due to poor enhancement. If clinically warranted, nuclear medicine V/Q scan may be obtained. -Bilateral lower lobe atelectasis. -Bilateral gynecomastia. -Cystic mass in the right chest wall measures 6.7 cm. -There is no thoracic aortic aneurysm or dissection. Due to his active smoking. tachycardia, elevated D dimer - VQ scan and echocardiogram ordered V/Q scan showed low probability for PE Echocardiogram showed LVEF 65-70%, left atrium mildly dilated, right ventricle moderately dilated Methamphetamine abuse Tobacco abuse Urine tox showed postivie amphetamines and cannabinoids food and nutrition services assistant and substance use navigator consult requested Strongly recommended to quit methamphetamine and tobacco abuse Mild hyponatremia and hypochloremia -resolved Acute kidney injury -resolved No CKD Continue normal saline at 100 cc/hour FeNa<1%, elevated osmolality - Likely Pre renal - vasootor nephropathy though sodium more than 20 Hypokalemia: Replacement as per the protocol Mg- 1.9. Gave one dose of 2gm Magnesium sulfate Obstructive sleep apnea Continue CPAP at night BPH Mentions that he does not use any medications at home DVT prophylaxis: Lovenox 40 mg subcutaneous daily Disposition: Possible discharge admission in a.m. with linezolid. Needs wound care appointment. Trend procalcitonin Dayan Min MD Internal Medicine Resident, PGY 3 Date of Service: May 24, 2025 Billing Provider: LEXA QUINTANILLA MD, MANOJNA RES May 24, 2025 20:24
[2025-05-24] MEDS: magnesium sulf-water 2g/50mL 50 ML IV ONE (21:44)
[2025-05-24] MEDS ORDERED: VANCOMYCIN LEVEL IV ONE (22:30)
[2025-05-24] MEDS: VANCOMYCIN LEVEL IV ONE (22:40)
[2025-05-25] VITALS (7 sets, daily range): BP systolic 121–126; BP diastolic 61–83; PULSE 66–103; RESP 14–20; TEMP 97–98.2; O2SAT 98–99
[2025-05-25 05:33] LABS: MEAN PLATELET VOLUME 7.7 FL (7.4-10.4); RED CELL DISTRIBUTION WIDTH 13.8 % (11.5-14.5)
[2025-05-25 05:54] LABS: APTT 28 SECONDS (22-32); INR 1.0 INR
[2025-05-25 05:58] LABS: CREATININE 0.88 MG/DL (0.60-1.10); PHOSPHORUS 4.1 MG/DL (2.3-4.5); TOTAL CARBON DIOXIDE 26.0 MMOL/L (24-32); eCRCL 108 ML/MIN; eGFR > 90 ML/MIN
[2025-05-25] MEDS ORDERED: LINE600T14 PO (08:07)
[2025-05-25] MEDS ORDERED: PANT40TA54 PO (08:07)
[2025-05-25] MEDS ORDERED: LACT1CAP26 PO (08:07)
[2025-05-25] MEDS: VANCOMYCIN/WATER FOR INJ (PEG) 1.5GM/300 ML IVPB IV SCH (09:09)
--- NOTE | 2025-05-25 18:45 | DISCHARGE SUMMARY-Residence ---
Discharge Summary Providers to Resident Creating Document: JUDY OCHOA RES ~ Discharge Summary Admission Diagnosis: LE cellulitis/possble sepsis Hospital Course DATE OF ADMISSION: 05/22/2025 DATE OF DISCHARGE: 05/25/2025 Labs at the time of discharge WBC 8.0 Hemoglobin 11.7 Sodium 141 Potassium 4.0 Creatinine 0.88 Procalcitonin 1.00 U tox positive for amphetamine and opiates Imaging CTA on 05/22/2025 Due to contrast bolus timing in the systemic arteries and the lack of contrast in the pulmonary arterial tree, the study is nondiagnostic for pulmonary embolism. If there is high clinical concern for pulmonary embolism, consider repeating the study after IV hydration. There is no thoracic aortic aneurysm or dissection. CTA on 05/23/2025 1. Suboptimal enhancement of the pulmonary arteries. No pulmonary embolus in the main pulmonary arteries. Lobar, segmental and subsegmental branches are not evaluated due to poor enhancement. If clinically warranted, nuclear medicine V/Q scan may be obtained. 2. Bilateral lower lobe atelectasis. 3. Bilateral gynecomastia. 4. Cystic mass in the right chest wall measures 6.7 cm. V/Q scan Low probability for PE Lower extremity CT Moderate left and severe right diffuse subcutaneous edema in lower extremities [id number]. No subcutaneous gas to suggest necrotizing fasciitis although it can not be ruled out. Vascular ultrasound No right or left femoropopliteal venous thrombosis. Echocardiogram Normal LV size and function. Moderate concentric hypertrophy. LVEF is 65-70%. RV is moderately increased in size with mildly reduced function. Left atrium is mildly dilated. Trileaflet AV appears mildly sclerotic without stenosis or insufficiency. Mild MV annular calcification without stenosis. Trace regurgitation. TV appears structurally normal with trace regurgitation. Normal pericardium. No effusion. Prominent anterior epicardial fat pad. Discharge Diagnosis\Comment: Sepsis secondary to bilateral lower extremity cellulitis, worse on right Sinus tachycardia Methamphetamine use Tobacco use Mild hyponatremia and hypochloremia RIHNA Hypokalemia Obstructive sleep apnea BPH Operations\Procedures: None Consultants: None Complications: None Condition on DC: Stable New Medications: Lactobacillus Rhamnosus (Culturelle) 10 Billion Cell Capsule 1 CAP PO DAILY for 30 Days, #30 CAP 0 Refills Linezolid (Linezolid) 600 Mg Tablet 1 TAB PO Q12H for 10 Days, #20 TAB 0 Refills Pantoprazole Sodium (Pantoprazole Sodium) 40 Mg Tablet.dr 1 TAB PO DAILY for 15 Days, #15 TAB 0 Refills Continued Medications: Lisinopril/Hydrochlorothiazide (Lisinopril-Hctz 10-12.5 mg Tab) 10 Mg-12.5 Mg Tablet 1 TAB PO DAILY for 30 Days, #30 TAB 0 Refills Discharge Summary: This is a 44-year-old male with a history of obstructive sleep apnea on CPAP, BPH came to the ER with a chief complaint of worsening pain, erythema, edema in bilateral lower extremities, more on right. He was admitted for sepsis seco ndary to right lower extremity cellulitis. Had elevated WBC count, procalcitonin, lactic acid.. Received 2 L of bolus in the ER, continued on NS@ 100 mL/hour. started on vancomycin and Zosyn. Blood cultures were negative. Bilateral lower extremity CT showed subcutaneous edema, no signs of necrotizing fasciitis. Vascular ultrasound reported no femoral popliteal venous thrombosis. WBC count, procalcitonin and lactic acid trended down, erythema also improved. Wound care appointment made for 05/29/2025. At the time of admission patient had sinus tachycardia, EKG showed sinus rhythm. D-dimer was elevated, initial CTA chest showed lack of contrast in the pulmonary artery tree. Repeat CTA showed no pulmonary embolus in the main pulmonary artery. Lobar, segmental branches are not evaluated due to poor enhancement. V/Q scan was done which showed low probability for pulmonary embolism. Echocardiogram was done which showed ejection fraction of 65-70%, mildly dilated left atrium, moderately dilated right ventricle. Patient also has a history of methamphetamine and tobacco use, U tox positive for methamphetamine and cannabinoids. Social service and substance use navigator consulted. Patient also had hyponatremia, hypochloremia, hypokalemia, RHINA which resolved with fluids and replacement. Has a history of obstructive sleep apnea, continued CPAP at night. Patient has improved symptomatically and is stable enough to be discharged home. At the time of discharge patient had the following physical examination findings General examination: Oriented to time, self, place and person. Morbidly obese HEENT: Normocephalic and atraumatic. Neck: Trachea is in midline. No masses or JVD Chest: Bilateral normal breath sounds. No crackles, rhonchi or wheezes Cardiovascular: Regular rate and rhythm. No rubs or murmurs Abdomen: Soft, nontender nondistended. Bowel sounds present Extremities: Bilateral lower extremity pedal edema-appears chronic. Erythema, warmth and tenderness in the right lower extremity kllwr-[id number]-[id number] till ankle- improving erythema No open wounds or discharge. No cyanosis or clubbing. Bilateral 2+ pedal pulse. Central Nervous System: No gross sensory or motor deficits. CN II to XII grossly intact Skin: Warm and dry with findings as mentioned above Discharge medications Linezolid 600 mg q.12 for 10 days Pantoprazole 40 mg daily Culturelle Continued home medication lisinopril/xpupaxpxfridzgjzklb-19-33.5 mg Discharge instructions OUTPATIENT WOUND CARE APPOINTMENT THURSDAY, 05/29 AT 12:30. Follow up with PCP in two weeks Continue to take linezolid 600 mg twice daily for 10 days Continued fatigue pantoprazole 40 mg daily Do not miss wound care appointment Try to quit methamphetamine use and smoking. *Problems/Diagnosis: (1) Cellulitis Status: Acute (2) Peripheral edema Status: Acute Total Time Spent on D/C: > 30 Minutes Counseling Services Smoking & Tobacco Cessation: > 10 Minutes Date of Service: May 25, 2025 Billing Provider: LEXA QUINTANILLA MD, PRAVAHIKA, RES May 25, 2025 18:44
[2025-05-26] MEDS ORDERED: VANCOMYCIN LEVEL IV ONE (07:30)
== END 2025-05-25 11:10 | disposition home or self-care (01) | DRG 720 ==
LOC: ER 10:14 → ED HOLD 15:22 → ORTHO 4S 22:55
PROVIDERS: ADMIT Family Medicine; ATTEND Family Medicine
PROC: B32T1ZZ Computerized Tomography (CT Scan) of Left Pulmonary Artery using Low Osmolar Contrast (ICD-10-PCS; principal; 2025-05-22)
PROC: B32S1ZZ Computerized Tomography (CT Scan) of Right Pulmonary Artery using Low Osmolar Contrast (ICD-10-PCS; 2025-05-22)
PROC: B3201ZZ Computerized Tomography (CT Scan) of Thoracic Aorta using Low Osmolar Contrast (ICD-10-PCS; 2025-05-22)
PROC: B3201ZZ Computerized Tomography (CT Scan) of Thoracic Aorta using Low Osmolar Contrast (ICD-10-PCS; 2025-05-23)
PROC: B32T1ZZ Computerized Tomography (CT Scan) of Left Pulmonary Artery using Low Osmolar Contrast (ICD-10-PCS; 2025-05-23)
PROC: B32S1ZZ Computerized Tomography (CT Scan) of Right Pulmonary Artery using Low Osmolar Contrast (ICD-10-PCS; 2025-05-23)
PROC: 5A09357 Assistance with Respiratory Ventilation, Less than 24 Consecutive Hours, Continuous Positive Airway Pressure (ICD-10-PCS; 2025-05-23)
PROC: CB121ZZ Planar Nuclear Medicine Imaging of Lungs and Bronchi using Technetium 99m (Tc-99m) (ICD-10-PCS; 2025-05-24)
PROC: 5A09357 Assistance with Respiratory Ventilation, Less than 24 Consecutive Hours, Continuous Positive Airway Pressure (ICD-10-PCS; 2025-05-24)
DX: A41.9 Sepsis, unspecified organism (principal); E87.1 Hypo-osmolality and hyponatremia; L03.115 Cellulitis of right lower limb; L03.116 Cellulitis of left lower limb; E87.8 Other disorders of electrolyte and fluid balance, not elsewhere classified; N17.9 Acute kidney failure, unspecified; E87.6 Hypokalemia; G47.33 Obstructive sleep apnea (adult) (pediatric); N40.0 Benign prostatic hyperplasia without lower urinary tract symptoms; F15.90 Other stimulant use, unspecified, uncomplicated
CPT/HCPCS: 36415; 71045; 71275; 73700; 78582; 80048; 80053; 80061; 80202; 80305; 81001; 82570; 82948; 83036; 83605; 83735; 83880; 83935; 84100; 84133; 84145; 84300; 84484; 85025; 85379; 85610; 85730; 87040; 87081; 87207; 93005; 93306; 93970; 94660; 94760; 96365; 96375; 97110; 97161; 97530; 99285; A4615; A6258; A6590; A9539; A9540; G0378; J1650; J1938; J2270; J2405; J2543; J3373; J3374; J3375; J7030; J7040; J7042; Q9967